=== PATIENT | female | born 1985 | race Caucasian/White ===

== ENCOUNTER 2023-02-20 08:43 | Emergency (ER) | payer MEDICAID, SELFPAY ==
[2023-02-20 08:45] VITALS: BP 148/91; PULSE 93; RESP 14; TEMP 36.6; O2SAT 98; BMI 28.1
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
[2023-02-20] MEDS: Diphth,Pertuss(Acell),Tet Vac 0.5 ML Vial IM (10:13)
== END 2023-02-20 10:21 | disposition home or self-care (01) ==
PROVIDERS: Emergency Provider Emergency Medicine; Visit Provider Emergency Medicine
DX: S00.81XA Abrasion of other part of head, initial encounter (principal); M25.522 Pain in left elbow; Z23 Encounter for immunization; V43.52XA Car driver injured in collision with other type car in traffic accident, initial encounter
CPT/HCPCS: 73080; 90471; 90715; 99284